=== PATIENT | male | born 1960 | race Caucasian/White ===

== ENCOUNTER 2017-04-05 16:23 | Inpatient (IN) | payer OTHER ==
[~2017-04-05] VITALS: Ht 175.3 cm; Wt 97.7 kg
[~2017-04-05 16:23] MED LIST: ADV250/50 INH; ALLERGY10 M3 PO; AMLODIPINE BESY10 M1 PO; BENADRYL ALLERG25 MG; CENTRUM SILVER1 TA4 PO; DEXILANT60 M1 PO; FLA500 PO; FLEXERIL10 MG PO; FLUTICASON0.05 MG/Ac; HYDRALAZINE HCL25 MG PO; LAC PO; LEVAQUIN750 MG PO; PROVENTIL0.09 MG/A1 IH; TOPAMAX25 M1 PO; TYLENOL EXTRA500 M2; XANAX XR0.5 M1 PO; ZOMIG5 M1 NS; ZYRTEC ALLERGY10 MG PO
[2017-04-05 17:36] LABS: BASOPHIL % 0.8 % (0-2); PLATELET COUNT 248 x10^3mcL (130-400); RED CELL DISTRIBUTION WIDTH 14.3 % (11.5-14.5)
[2017-04-05 18:00] LABS: ALBUMIN 4.2 g/dL (3.4-5.0); ALKALINE PHOSPHATASE 77 U/L (46-116); ALT/SGPT 60 U/L (16-63); AST/SGOT 24 U/L (15-37); BILIRUBIN TOTAL 0.52 mg/dL (0.20-1.00); CALCIUM 9.5 mg/dL (8.5-10.1); CARBON DIOXIDE 28.4 mmol/L (21-32); CHLORIDE SERUM 97 mmol/L (98-107); CREATININE SERUM 1.2 mg/dL (0.7-1.3); FREE T4 0.98 ng/dL (0.76-1.46); GFR1 > 60 mL/min; GLUCOSE SERUM 142 mg/dL (74-106); LIPASE 117 IU/L (73-393); SODIUM SERUM 138 mmol/L (136-145); TOTAL PROTEIN, SERUM 7.7 g/dL (6.4-8.2)
[2017-04-05 18:03] LABS: POTASSIUM SERUM 2.6 mmol/L (3.5-5.1)
[2017-04-05] MEDS ORDERED: NORVASC2.5 MG (18:34)
[2017-04-05] MEDS ORDERED: ASPIR 8181 MG (18:35)
[2017-04-05] MEDS ORDERED: LOSARTAN POTASS25 M1 (18:35)
[2017-04-05] MEDS ORDERED: K10 (18:35)
[2017-04-05] MEDS ORDERED: LASIX20 MG (18:35)
[2017-04-05] MEDS ORDERED: XANAX0.25 MG (18:35)
[2017-04-05] MEDS ORDERED: VENTOLIN H0.09 MG/A1 (18:35)
[2017-04-05] MEDS ORDERED: NORCO1 TA2 (18:36)
[2017-04-05] MEDS ORDERED: CLARITIN10 MG (18:36)
[2017-04-05] MEDS ORDERED: NORVASC2.5 MG PO (20:40)
[2017-04-05] MEDS ORDERED: LOSARTAN POTASS25 M1 PO (20:42)
[2017-04-05] MEDS ORDERED: XANAX0.5 MG PO (20:44)
[2017-04-05 20:49] LABS: AMPHETAMINE QUAL UR NONE DETECTED (NEG <=1000)
[2017-04-05 21:19] VITALS: BP 150/101
[2017-04-05 22:16] LABS: AMYLASE 38 U/L (25-115); HDL CHOLESTEROL 46 mg/dL (40-60)
[2017-04-05 22:17] LABS: CHOLESTEROL 287 mg/dL (<200); CHOLESTEROL/HDL RATIO 6.2; TRIGLYCERIDES 598 mg/dL (<150)
[2017-04-05 22:20] LABS: T3 TOTAL 1.44 ng/mL
[2017-04-05 22:26] LABS: FREE T4 0.95 ng/dL (0.76-1.46); T4(THYROXINE) 9.2 ug/dL (4.7-13.3)
[2017-04-05 22:30] VITALS: BP 150/101
[2017-04-05 22:59] LABS: CALCIUM 8.3 mg/dL (8.5-10.1); CARBON DIOXIDE 23.7 mmol/L (21-32); CHLORIDE SERUM 102 mmol/L (98-107); CREATININE SERUM 0.9 mg/dL (0.7-1.3); GFR1 > 60 mL/min; GLUCOSE SERUM 101 mg/dL (74-106); SODIUM SERUM 140 mmol/L (136-145)
[2017-04-06 02:37] LABS: microscopic required? NO
[2017-04-06 02:42] LABS: UA SPECIFIC GRAVITY <=1.005 (1.005-1.035); urine erythrocyte NEGATIVE (NEGATIVE)
[2017-04-06 05:56] VITALS: BP 129/83
[2017-04-06 06:44] LABS: BASOPHIL % 0.4 % (0-2); PLATELET COUNT 220 x10^3mcL (130-400)
[2017-04-06 06:50] LABS: CALCIUM 8.5 mg/dL (8.5-10.1); CARBON DIOXIDE 25.6 mmol/L (21-32); CHLORIDE SERUM 105 mmol/L (98-107); CREATININE SERUM 0.9 mg/dL (0.7-1.3); GFR1 > 60 mL/min; GLUCOSE SERUM 104 mg/dL (74-106); PHOSPHOROUS 2.7 mg/dL (2.5-4.9); POTASSIUM SERUM 3.6 mmol/L (3.5-5.1); SODIUM SERUM 143 mmol/L (136-145)
[2017-04-06 07:04] LABS: RED CELL DISTRIBUTION WIDTH 14.6 % (11.5-14.5)
[2017-04-06 10:03] VITALS: BP 114/71
[2017-04-06 13:38] VITALS: BP 121/81
[2017-04-06 17:23] VITALS: BP 127/77
[2017-04-06 21:50] VITALS: BP 129/86
[2017-04-07 06:03] VITALS: BP 114/80
[2017-04-07 09:40] VITALS: BP 141/92
[2017-04-07 13:34] VITALS: BP 119/75
[2017-04-07] MEDS ORDERED: TRICOR48 M1 PO (14:30)
[2017-04-07 14:46] VITALS: BP 119/75
[2017-04-07] MEDS ORDERED: FLE10 PO (14:51)
[2017-04-07] MEDS ORDERED: METOPROLOL SUCC50 M2 PO (17:02)
[2017-04-07] MEDS ORDERED: ATORVASTATIN CA40 M1 PO (17:05)
[2017-04-07 17:29] VITALS: BP 139/99
== END 2017-04-07 18:42 | disposition home or self-care (01) | DRG 243 ==
LOC: ED 16:23 → DU 20:22
PROVIDERS: Emergency Medicine; ADMIT Family Medicine
DX: K21.9 Gastro-esophageal reflux disease without esophagitis (principal); N17.0 Acute kidney failure with tubular necrosis; E87.2 Acidosis; I42.9 Cardiomyopathy, unspecified; K76.0 Fatty (change of) liver, not elsewhere classified; I10 Essential (primary) hypertension; E87.6 Hypokalemia; F41.9 Anxiety disorder, unspecified; J45.909 Unspecified asthma, uncomplicated; E78.2 Mixed hyperlipidemia; J30.9 Allergic rhinitis, unspecified; D64.9 Anemia, unspecified; Z68.31 Body mass index [BMI] 31.0-31.9, adult
CPT/HCPCS: 83880; 84439; C9113; G0480; J0696; J3480; J7030; J7620; Q0092; Q9967

== ENCOUNTER 2017-12-25 17:54 | Inpatient (IN) | payer OTHER ==
[~2017-12-25] VITALS: Ht 175.3 cm; Wt 107.6 kg
[~2017-12-25 17:54] MED LIST changes: +ASPIR 8181 MG; +ATORVASTATIN CA40 M1 PO; +CLARITIN10 MG; +FLE10 PO; +K10; +LASIX20 MG; +LOSARTAN POTASS25 M1; +LOSARTAN POTASS25 M1 PO; +METOPROLOL SUCC50 M2 PO; +NORCO1 TA2; +NORVASC2.5 MG; +NORVASC2.5 MG PO; +TRICOR48 M1 PO; +VENTOLIN H0.09 MG/A1; +XANAX0.25 MG; +XANAX0.5 MG PO
[2017-12-25 18:02] VITALS: Ht 175.3 cm; Wt 107.6 kg
[2017-12-25 19:17] LABS: BASOPHIL % 0.2 % (0-2); PLATELET COUNT 225 x10^3mcL (130-400); RED CELL DISTRIBUTION WIDTH 14.4 % (11.5-14.5)
[2017-12-25 19:28] LABS: CALCIUM 7.9 mg/dL (8.5-10.1); CARBON DIOXIDE 25.1 mmol/L (21-32); CHLORIDE SERUM 107 mmol/L (98-107); GFR1 > 60 mL/min; GLUCOSE SERUM 136 mg/dL (74-106); POTASSIUM SERUM 3.8 mmol/L (3.5-5.1); SODIUM SERUM 144 mmol/L (136-145)
[2017-12-25 19:41] LABS: ALBUMIN 3.4 g/dL (3.4-5.0); ALKALINE PHOSPHATASE 83 U/L (46-116); ALT/SGPT 163 U/L (16-63); AMYLASE 34 U/L (25-115); AST/SGOT 79 U/L (15-37); BILIRUBIN TOTAL 0.4 mg/dL (0.20-1.00); CHOLESTEROL 210 mg/dL (<200); HDL CHOLESTEROL 51 mg/dL (40-60); LIPASE 150 IU/L (73-393); TOTAL PROTEIN, SERUM 6.2 g/dL (6.4-8.2)
[2017-12-25 20:49] LABS: UA SPECIFIC GRAVITY 1.025 (1.005-1.035); microscopic required? YES; urine erythrocyte NEGATIVE (NEGATIVE)
[2017-12-25 20:59] LABS: AMPHETAMINE QUAL UR NONE DETECTED (NEG <=1000)
[2017-12-25] MEDS ORDERED: NOR10 PO (23:17)
[2017-12-25] MEDS ORDERED: XANAX0.5 MG PO (23:18)
[2017-12-25] MEDS ORDERED: FLE10 PO (23:22)
[2017-12-25 23:33] LABS: CHOLESTEROL 193 mg/dL (<200); CHOLESTEROL/HDL RATIO 4.2; HDL CHOLESTEROL 46 mg/dL (40-60); MAGNESIUM 2.1 mg/dL (1.8-2.4); TRIGLYCERIDES 405 mg/dL (<150)
[2017-12-25 23:35] LABS: FREE T4 0.76 ng/dL (0.76-1.46); FREE THYROXINE INDEX 1.9 ug/dL (1.4-4.5); T4(THYROXINE) 4.6 ug/dL (4.7-13.3)
[2017-12-25 23:36] VITALS: BP 163/94
[2017-12-26 00:08] LABS: T3 TOTAL 0.99 ng/mL
[2017-12-26 05:12] VITALS: BP 105/67
[2017-12-26 06:49] LABS: PLATELET COUNT 197 x10^3mcL (130-400)
[2017-12-26 07:00] LABS: CALCIUM 8.8 mg/dL (8.5-10.1); CARBON DIOXIDE 24.4 mmol/L (21-32); CHLORIDE SERUM 106 mmol/L (98-107); GFR1 > 60 mL/min; GLUCOSE SERUM 160 mg/dL (74-106); PHOSPHOROUS 2.8 mg/dL (2.5-4.9); POTASSIUM SERUM 4.3 mmol/L (3.5-5.1); SODIUM SERUM 142 mmol/L (136-145)
[2017-12-26 07:04] LABS: BASOPHIL % 0 % (0-2); RED CELL DISTRIBUTION WIDTH 14.6 % (11.5-14.5)
[2017-12-26 08:10] VITALS: BP 112/55
[2017-12-26 13:39] VITALS: BP 140/83
[2017-12-26 17:00] VITALS: BP 126/81
[2017-12-26 22:26] VITALS: BP 116/75
[2017-12-27 06:11] VITALS: BP 138/82
[2017-12-27 08:25] LABS: BASOPHIL % 0.2 % (0-2); PLATELET COUNT 213 x10^3mcL (130-400)
[2017-12-27 08:27] LABS: RED CELL DISTRIBUTION WIDTH 14.9 % (11.5-14.5)
[2017-12-27 08:41] LABS: CALCIUM 8.7 mg/dL (8.5-10.1); CARBON DIOXIDE 24.1 mmol/L (21-32); CHLORIDE SERUM 101 mmol/L (98-107); CREATININE SERUM 1.1 mg/dL (0.7-1.3); GFR1 > 60 mL/min; GLUCOSE SERUM 194 mg/dL (74-106); PHOSPHOROUS 3.7 mg/dL (2.5-4.9); SODIUM SERUM 139 mmol/L (136-145)
[2017-12-27 09:24] VITALS: BP 127/81
[2017-12-27] MEDS ORDERED: SINGULAIR10 MG PO (11:21)
[2017-12-27] MEDS ORDERED: FLONASE ALLERG9.9 ML NS (11:22)
[2017-12-27] MEDS ORDERED: LEVAQUIN750 MG PO (11:23)
[2017-12-27] MEDS ORDERED: LAC PO (11:24)
[2017-12-27] MEDS ORDERED: CLEOCIN HCL300 MG PO (11:24)
[2017-12-27] MEDS ORDERED: PRI20 PO (11:25)
[2017-12-27] MEDS ORDERED: FUROSEMIDE20 MG PO (11:26)
[2017-12-27] MEDS ORDERED: COUGH100 MG/5 M PO (11:26)
[2017-12-27] MEDS ORDERED: ACCU-CHEK FAST1 EAC1 MC (11:27)
[2017-12-27] MEDS ORDERED: LANCET DEVICE1 EACH MC (11:28)
[2017-12-27] MEDS ORDERED: TEST STRIPS1 EACH MC (11:29)
[2017-12-27] MEDS ORDERED: PREDNISONE10 MG PO (11:30)
[2017-12-27 13:35] VITALS: BP 127/81
[2017-12-27 14:00] VITALS: BP 131/79
== END 2017-12-27 19:07 | disposition home or self-care (01) | DRG 141 ==
LOC: ED 17:54 → DU 22:10
PROVIDERS: Emergency Medicine; Family Medicine
DX: J45.901 Unspecified asthma with (acute) exacerbation (principal); N17.0 Acute kidney failure with tubular necrosis; J69.0 Pneumonitis due to inhalation of food and vomit; E87.3 Alkalosis; E11.65 Type 2 diabetes mellitus with hyperglycemia; K21.9 Gastro-esophageal reflux disease without esophagitis; I10 Essential (primary) hypertension; F41.9 Anxiety disorder, unspecified; F32.9 Major depressive disorder, single episode, unspecified; G43.909 Migraine, unspecified, not intractable, without status migrainosus; E78.00 Pure hypercholesterolemia, unspecified; E78.5 Hyperlipidemia, unspecified; E66.9 Obesity, unspecified; Z79.899 Other long term (current) drug therapy; Z80.3 Family history of malignant neoplasm of breast; Z80.9 Family history of malignant neoplasm, unspecified; Z82.49 Family history of ischemic heart disease and other diseases of the circulatory system; Z82.0 Family history of epilepsy and other diseases of the nervous system; Z56.0 Unemployment, unspecified; Z68.36 Body mass index [BMI] 36.0-36.9, adult; Z88.5 Allergy status to narcotic agent; Z88.8 Allergy status to other drugs, medicaments and biological substances
CPT/HCPCS: 36600; 82962; 83880; 84439; 94150; J1644; J1885; J1940; J1956; J2920; J2930; J3490; J7030; J7613; J7620; J7626; J7644; Q0092

== ENCOUNTER 2018-01-01 14:36 | Emergency (ER) | payer OTHER ==
[~2018-01-01] VITALS: Ht 175.3 cm; Wt 2.5 kg
[~2018-01-01 14:36] MED LIST changes: +ACCU-CHEK FAST1 EAC1 MC; +CLEOCIN HCL300 MG PO; +COUGH100 MG/5 M PO; +FLONASE ALLERG9.9 ML NS; +FUROSEMIDE20 MG PO; +LANCET DEVICE1 EACH MC; +NOR10 PO; +PREDNISONE10 MG PO; +PRI20 PO; +SINGULAIR10 MG PO; +TEST STRIPS1 EACH MC
[2018-01-01 14:41] VITALS: Ht 175.3 cm; Wt 2.5 kg
[2018-01-01 16:50] VITALS: BP 133/82
== END 2018-01-01 16:50 | disposition home or self-care (01) ==
LOC: ED 14:36
DX: S22.31XA Fracture of one rib, right side, initial encounter for closed fracture (principal); I10 Essential (primary) hypertension; J45.909 Unspecified asthma, uncomplicated; G43.909 Migraine, unspecified, not intractable, without status migrainosus; E78.00 Pure hypercholesterolemia, unspecified; K21.9 Gastro-esophageal reflux disease without esophagitis; Z88.5 Allergy status to narcotic agent; Z88.8 Allergy status to other drugs, medicaments and biological substances; X50.9XXA Other and unspecified overexertion or strenuous movements or postures, initial encounter; Y93.89 Activity, other specified; Y99.8 Other external cause status; Y92.89 Other specified places as the place of occurrence of the external cause
CPT/HCPCS: J2270; Q0162